=== PATIENT | female | born 1990 | race Two or more races ===

== ENCOUNTER 2020-06-30 13:03 | Emergency (ER) | payer MEDICAID ==
[~2020-06-30] VITALS: Ht 154.9 cm; Wt 68.0 kg
[2020-06-30 13:20] VITALS: BP 132/93
[2020-06-30 14:27] LABS: BASOPHILS % (AUTO) 0.8 % (0.0-2.0); EOSINOPHILS % (AUTO) 2.5 % (0.0-3.0); HEMATOCRIT 45.2 % (37.0-47.0); HEMOGLOBIN 15.1 G/DL (12.0-16.0); LYMPHOCYTES % (AUTO) 23.8 % (20.0-45.0); MEAN CORPUSCULAR VOLUME 94 FL (80-99); MONOCYTES % (AUTO) 7.7 % (1.0-10.0); NEUTROPHILS % (AUTO) 65.2 % (45.0-75.0); PLATELET COUNT 337 K/UL (150-450); RED CELL DISTRIBUTION WIDTH 12.6 % (11.6-14.8); WHITE BLOOD COUNT 9.3 K/UL (4.8-10.8)
[2020-06-30 14:29] LABS: APPEARANCE,URINE CLEAR; BILIRUBIN, URINE NEGATIVE (NEGATIVE); GLUCOSE, URINE (UA) NEGATIVE (NEGATIVE); KETONES,URINE 1+ (NEGATIVE); LEUKOCYTE ESTERASE ,URINE 1+ (NEGATIVE); NITRITE,URINE NEGATIVE (NEGATIVE); PH,URINE 6 (4.5-8.0); PROTEIN,URINE 1+ (NEGATIVE); UROBILINOGEN,URINE 1 MG/DL (0.0-1.0)
[2020-06-30 14:34] LABS: COLOR,URINE YELLOW
[2020-06-30 14:37] LABS: ANION GAP 11 mmol/L (5-15); BLOOD UREA NITROGEN 12 mg/dL (7-18); CALCIUM 8.8 MG/DL (8.5-10.1); CARBON DIOXIDE 27 MMOL/L (21-32); CHLORIDE 107 MMOL/L (98-107); CREATININE 0.9 MG/DL (0.55-1.30); POTASSIUM 3.6 MMOL/L (3.5-5.1); SODIUM 145 MMOL/L (136-145)
[2020-06-30 14:48] LABS: ALANINE AMINOTRANSFERASE 106 U/L (12-78); ALBUMIN 3.5 G/DL (3.4-5.0); ALBUMIN/GLOBULIN RATIO 0.9 (1.0-2.7); ALKALINE PHOSPHATASE 65 U/L (46-116); ASPARTATE AMINO TRANSFERASE 67 U/L (15-37); BILIRUBIN,TOTAL 0.5 MG/DL (0.2-1.0)
--- NOTE | 2020-06-30 15:09 | Emergency Room Report ---
History of Present Illness General Chief Complaint: Overdose Present Illness HPI 29-year-old female with no known significant past medical history here reporting that she feels weak because she feels like she overdosed on Suboxone after taking [address]. Patient reports that Suboxone was never given to her by her doctor. Also reports that she might have used cocaine or methamphetamine but she is not sure. Denies any alcohol intake. Appears to be under the influence of an unknown stimulant. Denies any headache and dizziness, chest pain, urinary symptoms. Denies abdominal pain, nausea vomiting diarrhea. Patient is neurovascularly intact. Pupils are equal and reactive. Responds to questions in full sentences. Is alert and oriented. Vital signs are within normal limits. Denies . Allergies: Coded Allergies: No Known Allergies (Unverified , 06/30/20) COVID-19 Screening Contact w/high risk pt: No Experienced COVID-19 symptoms?: No COVID-19 Testing performed BRAKE [employer] METAL: No Patient History Past Medical History: see triage record Past Surgical History: unable to obtain Pertinent Family History: unable to obtain Social History: Reports: drug use Now: No Immunizations: UTD Reviewed Nursing Documentation: PMH: Agreed; PSxH: Agreed Nursing Documentation-PMH Hx Hypertension: Yes Hx Diabetes: Yes Review of Systems All Other Systems: negative except mentioned in HPI Physical Exam Vital Signs Date Time Temp Pulse Resp B/P (MAP) Pulse Ox O2 Delivery O2 Flow Rate FiO2 06/30/20 13:12 97.9 84 19 132/93 (106) 97 Room Air Sp02 EP Interpretation: reviewed, normal General Appearance: no apparent distress, alert, GCS 15, non-toxic Head: normocephalic, atraumatic Eyes: bilateral eye normal inspection, bilateral eye PERRL ENT: hearing grossly normal, normal pharynx, no angioedema, normal voice Neck: full range of motion, supple/symm/no masses Respiratory: chest non-tender, lungs clear, normal breath sounds, no rhonchi, no respiratory distress, no retraction, no wheezing, speaking full sentences Cardiovascular #1: regular rate, rhythm, no edema, no murmur Cardiovascular #2: 2+ carotid (R), 2+ carotid (L), 2+ radial (R), 2+ radial (L), 2+ dorsalis pedis (R), 2+ dorsalis pedis (L) Gastrointestinal: normal bowel sounds, non tender, soft, non-distended, no guarding, no rebound Rectal: deferred Genitourinary: no CVA tenderness Musculoskeletal: back normal, no calf tenderness, pelvis stable, gait/station normal Neurologic: alert, motor strength/tone normal, oriented x3, sensory intact, responsive, speech normal Psychiatric: judgement/insight normal, memory normal, mood/affect normal, no suicidal/homicidal ideation Skin: no rash Lymphatic: no adenopathy Medical Decision Making PA Attestation Diagnosis and treatment plans were reviewed and discussed with my supervising physician Dr. Mustafa Diagnostic Impression: Primary Impression: Amphetamine abuse Additional Impression: UTI (urinary tract infection) ER Course 29-year-old female with no known significant past medical history here reporting that she feels weak because she feels like she overdosed on Suboxone after taking [address] Patient reports that Suboxone was never given to her by her doctor. Also reports that she might have used cocaine or methamphetamine but she is not sure. Denies any alcohol intake. Appears to be under the influence of an unknown stimulant. Denies any headache and dizziness, chest pain, urinary symptoms. Denies abdominal pain, nausea vomiting diarrhea. Patient is neurovascularly intact. Pupils are equal and reactive. Responds to questions in full sentences. Is alert and oriented. Vital signs are within normal limits. Denies . Ddx considered but are not limited to: Alcohol intoxication with altered level of consciousness, alcohol intoxication causing pancreatitis, alcohol abuse, multi drug use and alcohol intoxication Vital signs: are WNL, pt. is afebrile H&PE are most consistent with: Methamphetamine abuse, incidental finding of UTI ORDERS: Psychiatric order set, ER intervention: NS bolus, Rocephin DISCHARGE: At this time pt. is stable for d/c to home. Will provide printed patient care instructions, and any necessary prescriptions. Care plan and follow up instructions have been discussed with the patient prior to discharge. Patient was advised to stop using methamphetamine marijuana, patient to follow primary doctor, list of family clinics recommend patient establish primary care doctor, worsening symptoms return to the emergency room Last Vital Signs Date Time Temp Pulse Resp B/P (MAP) Pulse Ox O2 Delivery O2 Flow Rate FiO2 06/30/20 13:20 84 19 Room Air 06/30/20 13:20 97.9 132/93 97 Disposition: HOME, SELF-CARE Condition: Stable Referrals: NOT CHOSEN IPA/MD,REFERRING (PCP) Patient Instructions: Stimulant Use Disorder-Methamphetamines, Urinary Tract Infection Additional Instructions: Avoid using amphetamine, follow primary care provider, increase oral hydration, if worsening symptoms return to the emergency room Hallie Bethea Jun 30, 2020 15:09
[2020-06-30] MEDS ORDERED: cefTRIAXone 1 GM in NS 55 ML IVPB ONE (15:15)
[2020-06-30 15:30] VITALS: BP 128/85
[2020-06-30 15:43] VITALS: BP 128/85
== END 2020-06-30 15:43 | disposition home or self-care (01) ==
LOC: EMR 14:04
DX: F15.10 Other stimulant abuse, uncomplicated (principal); N39.0 Urinary tract infection, site not specified; E11.9 Type 2 diabetes mellitus without complications; I10 Essential (primary) hypertension
CPT/HCPCS: 36415; 80053; 80307; 81003; 81025; 85025; 96361; 96365; G0480; J0696; J7030; Z7502; 99284